=== PATIENT | female | born 1985 | race Caucasian/White ===

== ENCOUNTER 2016-07-23 07:25 | Emergency (ER) | payer OTHER ==
[2016-07-23] MEDS ORDERED: SODIUM CHLORIDE 0.9% 1,000 ML IV STA (07:58)
[2016-07-23] MEDS ORDERED: KETOROLAC 30 MG/ML 1 ML VIAL IVP STA (07:58)
--- NOTE | 2016-07-23 08:07 | ED ---
Abdominal Pain HPI - General Chief Complaint: Abdominal Pain Stated Complaint: lower abdominal pain Time Seen by Provider: 07/23/16 07:40 Source: patient, RN notes reviewed Mode of arrival: ambulatory Limitations: no limitations - History of Present Illness Initial Comments: This is a 31-year-old female who presents with complaints of lower abdominal pain which started about a week ago. She states pain is assessing dull achy- type pain mostly suprapubic but it goes across both sides right and left lower quadrants she states she was seen in outpatient clinic 3 days ago and diagnosed with urinary tract infection. She is placed on Bactrim but states she has no improvement she still has urinary urgency and she had more pain this morning that she has previously. The pain is currently 7-8/10 severity she denies any vaginal discharges she denies any her last muscle. Was June 25. She denies any constipation nausea vomiting diarrhea no fevers chills or sweats. No prior history kidney stones no prior abdominal surgeries. The pain does not get any worse with deep breathing does get worse with movement. MD Complaint: abdominal pain, other - Related Data Home Medications Medication Instructions Recorded Confirmed Sulfamethox-Tmp 800-160Mg [Bactrim 1 tab PO Q12HR 07/23/16 07/23/16 DS 800-160 mg] Previous Rx's Medication Instructions Recorded Ibuprofen [Motrin] 800 mg PO Q6HR PRN #20 tab 07/23/16 Oxybutynin Chloride [Ditropan] 5 mg PO BID #6 tab 07/23/16 Phenazopyridine HCl [Pyridium] 200 mg PO AC-TID #10 tablet 07/23/16 Allergies Allergy/AdvReac Type Severity Reaction Status Date / Time ofloxacin Allergy Rash/Hives Verified 07/23/16 07:30 Review of Systems ROS Statement: Those systems with pertinent positive or pertinent negative responses have been documented in the HPI. ROS Other: All systems not noted in ROS Statement are negative. Past Medical History Past Medical History: No Reported History History of Any Multi-Drug Resistant Organisms: None Reported Past Surgical History: No Surgical Hx Reported Past Psychological History: Depression Smoking Status: Current every day smoker Past Alcohol Use History: Occasional Past Drug Use History: None Reported General Exam - General Exam Comments Initial Comments: This is a well-developed well-nourished awake alert oriented 3 female Limitations: no limitations General appearance: alert, anxious, in distress Head exam: Present: atraumatic, normocephalic, normal inspection Eye exam: Present: normal appearance, PERRL, EOMI. Absent: scleral icterus, conjunctival injection, periorbital swelling ENT exam: Present: normal exam, mucous membranes moist Neck exam: Present: normal inspection. Absent: tenderness, meningismus, lymphadenopathy Respiratory exam: Present: normal lung sounds bilaterally. Absent: respiratory distress, wheezes, rales, rhonchi, stridor Cardiovascular Exam: Present: regular rate, normal rhythm, normal heart sounds. Absent: systolic murmur, diastolic murmur, rubs, gallop, clicks GI/Abdominal exam: Present: soft, tenderness (Tenderness palpation of the lower abdomen mostly over the suprapubic region some tenderness palpation over the left and right lower quadrants no guarding or rebound at this time.), normal bowel sounds. Absent: distended, guarding, rebound, rigid, bruit, pulsatile mass, hernia Extremities exam: Present: normal inspection, full ROM, normal capillary refill. Absent: tenderness, pedal edema, joint swelling, calf tenderness Back exam: Present: normal inspection Neurological exam: Present: alert, oriented X3, CN II-XII intact Psychiatric exam: Present: normal affect, normal mood Skin exam: Present: warm, dry, intact, normal color. Absent: rash Course Vital Signs 07/23/16 07/23/16 07/23/16 07:27 07:39 09:22 Temperature 97.0 F L 97.4 F L 98.1 F Pulse Rate 75 63 70 Respiratory 16 18 16 Rate Blood Pressure 146/82 121/73 95/56 O2 Sat by Pulse 97 100 99 Oximetry Medical Decision Making - Medical Decision Making I did discuss the findings with the patient and her mother who is present. The urine appears be clear the patient was having urinary frequency and some spasm is still may be consistent with a cystitis and some bladder spasms. Also the patient did have sharp left-sided pain which did relieve which would coincide with a ruptured ovarian cyst. Patient be discharged she is to not continue with her current medications we did discuss the elevated lipase level she does occasionally drink but hasn't drank recently. This may be secondary to a viral infection. Patient will follow up with Dr. Henson and return if needed. - Lab Data Result diagrams: 07/23/16 08:10 07/23/16 08:10 Lab Results 07/23/16 07/23/16 07/23/16 Range/Units 08:10 08:10 08:10 WBC 8.6 (3.8-10.6) k/uL RBC 4.46 (3.80-5.40) m/uL Hgb 13.0 (11.4-16.0) gm/dL Hct 39.3 (34.0-46.0) % MCV 88.2 (80.0-100.0) fL MCH 29.1 (25.0-35.0) pg MCHC 33.0 (31.0-37.0) g/dL RDW 13.2 (11.5-15.5) % Plt Count 218 (150-450) k/uL Neutrophils % 58 % Lymphocytes % 36 % Monocytes % 4 % Eosinophils % 1 % Basophils % 0 % Neutrophils # 4.9 (1.3-7.7) k/uL Lymphocytes # 3.1 (1.0-4.8) k/uL Monocytes # 0.3 (0-1.0) k/uL Eosinophils # 0.1 (0-0.7) k/uL Basophils # 0.0 (0-0.2) k/uL Sodium 141 (137-145) mmol/L Potassium 4.4 (3.5-5.1) mmol/L Chloride 110 H (98-107) mmol/L Carbon Dioxide 21 L (22-30) mmol/L Anion Gap 10 mmol/L BUN 13 (7-17) mg/dL Creatinine 0.87 (0.52-1.04) mg/dL Est GFR (MDRD) Af Amer >60 (>60 ml/min/1.73 sqM) Est GFR (MDRD) Non-Af >60 (>60 ml/min/1.73 sqM) Glucose 92 (74-99) mg/dL Calcium 9.2 (8.4-10.2) mg/dL Total Bilirubin 0.4 (0.2-1.3) mg/dL AST 25 (14-36) U/L ALT 35 (9-52) U/L Alkaline Phosphatase 53 (38-126) U/L Total Protein 6.7 (6.3-8.2) g/dL Albumin 3.9 (3.5-5.0) g/dL Amylase 99 (30-110) U/L Lipase 583 H (23-300) U/L Urine Color Yellow Urine Appearance Cloudy H (Clear) Urine pH 5.5 (5.0-8.0) Ur Specific [place] 1.023 (1.001-1.035) Urine Protein 1+ H (Negative) Urine Glucose (UA) Negative (Negative) Urine Ketones Negative (Negative) Urine Blood Negative (Negative) Urine Nitrite Negative (Negative) Urine Bilirubin Negative (Negative) Urine Urobilinogen <2.0 (<2.0) mg/dL Ur Leukocyte Esterase Negative (Negative) Urine RBC 1 (0-5) /hpf Urine WBC 3 (0-5) /hpf Ur Squamous Epith Cells 5 H (0-4) /hpf Urine Bacteria Moderate H (None) /hpf Hyaline Casts 28 H (0-2) /lpf Urine Mucus Few H (None) /hpf Urine HCG, Qual (Not Detectd) 07/23/16 Range/Units 08:10 WBC (3.8-10.6) k/uL RBC (3.80-5.40) m/uL Hgb (11.4-16.0) gm/dL Hct (34.0-46.0) % MCV (80.0-100.0) fL MCH (25.0-35.0) pg MCHC (31.0-37.0) g/dL RDW (11.5-15.5) % Plt Count (150-450) k/uL Neutrophils % % Lymphocytes % % Monocytes % % Eosinophils % % Basophils % % Neutrophils # (1.3-7.7) k/uL Lymphocytes # (1.0-4.8) k/uL Monocytes # (0-1.0) k/uL Eosinophils # (0-0.7) k/uL Basophils # (0-0.2) k/uL Sodium (137-145) mmol/L Potassium (3.5-5.1) mmol/L Chloride (98-107) mmol/L Carbon Dioxide (22-30) mmol/L Anion Gap mmol/L BUN (7-17) mg/dL Creatinine (0.52-1.04) mg/dL Est GFR (MDRD) Af Amer (>60 ml/min/1.73 sqM) Est GFR (MDRD) Non-Af (>60 ml/min/1.73 sqM) Glucose (74-99) mg/dL Calcium (8.4-10.2) mg/dL Total Bilirubin (0.2-1.3) mg/dL AST (14-36) U/L ALT (9-52) U/L Alkaline Phosphatase (38-126) U/L Total Protein (6.3-8.2) g/dL Albumin (3.5-5.0) g/dL Amylase (30-110) U/L Lipase (23-300) U/L Urine Color Urine Appearance (Clear) Urine pH (5.0-8.0) Ur Specific [place] (1.001-1.035) Urine Protein (Negative) Urine Glucose (UA) (Negative) Urine Ketones (Negative) Urine Blood (Negative) Urine Nitrite (Negative) Urine Bilirubin (Negative) Urine Urobilinogen (<2.0) mg/dL Ur Leukocyte Esterase (Negative) Urine RBC (0-5) /hpf Urine WBC (0-5) /hpf Ur Squamous Epith Cells (0-4) /hpf Urine Bacteria (None) /hpf Hyaline Casts (0-2) /lpf Urine Mucus (None) /hpf Urine HCG, Qual Not Detected (Not Detectd) - Radiology Data Radiology results: report reviewed (I did review the imaging and the ultrasound shows evidence of free fluid which is consistent with a ruptured cyst. No other significant findings), image reviewed Disposition Clinical Impression: Abdominal pain, Pancreatitis, Ruptured ovarian cyst, Bladder spasm Disposition: HOME SELF-CARE Condition: Good Instructions: Abdominal Pain (ED), Pancreatitis (ED), Ovarian Cyst (ED) Prescriptions: Ibuprofen [Motrin] 800 mg PO Q6HR PRN #20 tab PRN Reason: Pain Oxybutynin Chloride [Ditropan] 5 mg PO BID #6 tab Phenazopyridine HCl [Pyridium] 200 mg PO AC-TID #10 tablet
[2016-07-23] MEDS ORDERED: IBUPROFEN ORAL SUSP 100 MG/5 ML CUP PO ONE (08:13)
[2016-07-23 08:27] LABS: Basophils % (A) 0 %; CH 28.7; CHCM 32.7; Eosinophils # (A) 0.1 k/uL (0-0.7); Eosinophils % (A) 1 %; HCT 39.3 % (34.0-46.0); HDW 2.26; Luc # (Auto) 0.13; Luc % (Auto) 2; Lymphocytes # (A) 3.1 k/uL (1.0-4.8); Lymphocytes % (A) 36 %; MCH 29.1 pg (25.0-35.0); MCV 88.2 fL (80.0-100.0); Mean Platelet Volume 6.6; Monocytes # (A) 0.3 k/uL (0-1.0); Monocytes % (A) 4 %; Neutrophils # (A) 4.9 k/uL (1.3-7.7); Neutrophils % (A) 58 %; RBC 4.46 m/uL (3.80-5.40); RDW 13.2 % (11.5-15.5); WBC 8.6 k/uL (3.8-10.6); WBC (Perox) 8.73
[2016-07-23 08:31] LABS: Appearance,Urine Cloudy (Clear); Bacteria,Urine Moderate /hpf; Bilirubin,Urine Negative (Negative); Glucose,Urine (UA) Negative (Negative); Ketones,Urine Negative (Negative); Leukocyte Esterase,Urine Negative (Negative); Mucus,Urine Few /hpf; Nitrite,Urine Negative (Negative); PH, Urine 5.5 (5.0-8.0); Particle Count 12665; Protein,Urine 1+ (Negative); RBC,Urine 1 /hpf (0-5); Specific Gravity,Urine 1.023 (1.001-1.035); Squamous Epithelial Cell,Urine 5 /hpf (0-4); UA Billing (MACRO vs. MICRO) MICRO; Urobilinogen,Urine <2.0 mg/dL (<2.0); WBC,Urine 3 /hpf (0-5)
[2016-07-23 08:39] LABS: ALT 35 U/L (9-52); AST 25 U/L (14-36); Alkaline Phosphatase 53 U/L (38-126); Amylase 99 U/L (30-110); Anion Gap 10 mmol/L; Blood Urea Nitrogen 13 mg/dL (7-17); Calcium 9.2 mg/dL (8.4-10.2); Carbon Dioxide 21 mmol/L (22-30); Chloride 110 mmol/L (98-107); Glucose 92 mg/dL (74-99); Non-African American GFR(MDRD) >60 (>60 ml/min/1.73 sqM); Potassium 4.4 mmol/L (3.5-5.1); Sodium 141 mmol/L (137-145); Total Bilirubin 0.4 mg/dL (0.2-1.3); Total Protein 6.7 g/dL (6.3-8.2)
[2016-07-23 09:23] VITALS: RESP 16
--- NOTE | 2016-07-23 09:43 | CT ---
EXAMINATION TYPE: CT abdomen pelvis wo con DATE OF EXAM: 07/23/2016 9:36 AM COMPARISON: NONE HISTORY: Abdominal pain, left side CT DLP: 438 mGycm FINDINGS: LUNG BASES: No evidence for nodule. No evidence for infiltrate. LIVER/GB: The gallbladder is unremarkable. No space-occupying hepatic lesion. PANCREAS: No pancreatic mass identified. No inflammatory process seen. SPLEEN: No evidence for splenomegaly. No intrasplenic lesions seen. ADRENALS: No adrenal nodules identified. No evidence for thickening. KIDNEYS: No evidence for renal mass. No nephrolithiasis. No hydronephrosis. BOWEL: Appendix has a normal appearance. No evidence of bowel obstruction. No inflammatory process. Lymph nodes: No evidence for adenopathy greater than 1 cm. Abdominal aorta: Atheromatous changes seen. No evidence for aneurysm. Genital organs: Moderate pelvic free fluid may be related to recently ruptured cyst. Uterus is grossl y unremarkable. No definite adnexal mass identified at this time. Other: No significant abnormality. IMPRESSION: Moderate pelvic free fluid may be related to recently ruptured cyst.
[2016-07-23 10:52] VITALS: BP 111/56; PULSE 66; TEMP 97.7
== END 2016-07-23 10:49 | disposition home or self-care (01) ==
LOC: EC 07:25
DX: K85.90 Acute pancreatitis without necrosis or infection, unspecified (principal); N83.202 Unspecified ovarian cyst, left side; N32.89 Other specified disorders of bladder; Z88.1 Allergy status to other antibiotic agents
CPT/HCPCS: 96361 ×2; 96374 ×2; 99284 ×2; 36415; 80053; 82150; 83690; 85025; 81001; 81025; 87086; 74176; J1885

== ENCOUNTER → 2017-12-15 | Outpatient (CLI) | payer BC ==
[2017-12-15 10:44] LABS: ALT 34 U/L (9-52); AST 21 U/L (14-36); Albumin 4.5 g/dL (3.5-5.0); Alkaline Phosphatase 54 U/L (38-126); Anion Gap 10 mmol/L; Blood Urea Nitrogen 15 mg/dL (7-17); Calcium 9.5 mg/dL (8.4-10.2); Carbon Dioxide 26 mmol/L (22-30); Chloride 104 mmol/L (98-107); Cholesterol 183 mg/dL (<200); Glucose 90 mg/dL (74-99); HDL Cholesterol 67 mg/dL (40-60); LDL Cholesterol,Calculated 92 mg/dL (0-99); Potassium 4.5 mmol/L (3.5-5.1); Sodium 140 mmol/L (137-145); Total Bilirubin 0.4 mg/dL (0.2-1.3); Total Protein 7.4 g/dL (6.3-8.2); Triglycerides 118 mg/dL (<150)
[2017-12-15 10:51] LABS: Basophils % (A) 0 %; Eosinophils # (A) 0.1 k/uL (0-0.7); Eosinophils % (A) 1 %; HCT 43.3 % (34.0-46.0); HGB 13.8 gm/dL (11.4-16.0); Lymphocytes # (A) 2.2 k/uL (1.0-4.8); Lymphocytes % (A) 23 %; MCH 28.6 pg (25.0-35.0); MCHC 31.8 g/dL (31.0-37.0); MCV 89.9 fL (80.0-100.0); Mean Platelet Volume 6.5; Monocytes # (A) 0.3 k/uL (0-1.0); Monocytes % (A) 3 %; Neutrophils # (A) 6.9 k/uL (1.3-7.7); Neutrophils % (A) 72 %; Platelet Count 250 k/uL (150-450); RBC 4.82 m/uL (3.80-5.40); RDW 13.1 % (11.5-15.5); WBC 9.6 k/uL (3.8-10.6)
[2017-12-15 10:58] LABS: T4, Free (Free Thyroxine) 0.79 ng/dL (0.78-2.19)
== END | disposition home or self-care (01) ==
LOC: LABWHC1 08:57
PROVIDERS: ATTEND Family Medicine
DX: Z00.00 Encounter for general adult medical examination without abnormal findings (principal)
CPT/HCPCS: 36415; 80053; 80061; 84439; 84443; 85025

== ENCOUNTER 2018-03-21 14:05 | Emergency (ER) | payer BC ==
[2018-03-21 14:49] VITALS: BP 120/73; PULSE 77; RESP 18; TEMP 98.1
--- NOTE | 2018-03-21 17:05 | ED ---
General Adult HPI - General Chief complaint: Abdominal Pain Stated complaint: lower abd pain, pelvis pain, chills Source: patient Mode of arrival: ambulatory Limitations: no limitations - Related Data Home Medications Medication Instructions Recorded Confirmed Ascorbic Acid [Vitamin C] 1,000 mg PO DAILY 03/21/18 03/21/18 Cholecalciferol (Vitamin D3) 10,000 unit PO DAILY 03/21/18 03/21/18 [Vitamin D3] Cyanocobalamin (Vitamin B-12) 1,000 mcg PO DAILY 03/21/18 03/21/18 [Vitamin B-12] L.acidoph,Paracasei, B.lactis 2 cap PO DAILY 03/21/18 03/21/18 [Probiotic] Allergies Allergy/AdvReac Type Severity Reaction Status Date / Time ofloxacin Allergy Rash/Hives Verified 03/21/18 16:43 Review of Systems ROS Statement: Those systems with pertinent positive or pertinent negative responses have been documented in the HPI. ROS Other: All systems not noted in ROS Statement are negative. Past Medical History Past Medical History: No Reported History History of Any Multi-Drug Resistant Organisms: None Reported Past Surgical History: No Surgical Hx Reported Additional Past Surgical History / Comment(s): HPV surgery unsure Past Psychological History: Anxiety, Depression Smoking Status: Current every day smoker Past Alcohol Use History: Occasional Past Drug Use History: None Reported General Exam Limitations: no limitations Course Vital Signs 03/21/18 14:45 Temperature 98.1 F Pulse Rate 77 Respiratory 18 Rate Blood Pressure 120/73 O2 Sat by Pulse 98 Oximetry Medical Decision Making - Medical Decision Making Dictation was produced using [employer] dictation software. please excuse any grammatical, word or spelling errors. Chief Complaint: 33-year-old female presents with bilateral lower quadrant abdominal pain. History of Present Illness: Patient states that her symptoms have been ongoing for the last 2-3 days. Patient states the pain is located to the bilateral lower quadrant or she has history of urinary tract infection in the past per she states that pain is a nagging pain over the suprapubic area. Patient has any constitutional symptoms. Patient has any nausea, vomiting. Denies any history of abdominal surgery. Denies any changes in her bowel habits. Patient denies any vaginal discharge per she is concerned about STD. Patient is sexually active. She is unsure if she is . The ROS documented in this emergency department record has been reviewed and confirmed by me. Those systems with pertinent positive or negative responses have been documented in the HPI. All other systems are other negative and/or noncontributory. PHYSICAL EXAM: General Impression: Alert and oriented x3, not in acute distress HEENT: Normocephalic atraumatic, extra-ocular movements intact, pupils equal and reactive to light bilaterally, mucous membranes moist. Cardiovascular: Heart regular rate and rhythm, S1&S2 audible, no murmurs, rubs or gallops Chest: Lungs clear to auscultation bilaterally, no rhonchi, no wheeze, no rales Abdomen: Bowel sounds present, abdomen soft, non-tender, non-distended, no organomegaly, tenderness to palpation of the right lower quadrant, negative rebound tenderness, negative referred pain with palpation to the left Musculoskeletal: Pulses present and equal in all extremities, no peripheral edema Motor: Power 5/5 bilaterally, no focal deficits noted Neurological: CN II-XII grossly intact, no focal motor or sensory deficits noted Skin: Intact with no visualized rashes Psych: Normal affect and mood ED course: 30-year-old female presents chief complaint suprapubic pain. Vital signs upon arrival are within acceptable limits. Pelvic exam was performed. There is no findings to suggest cervicitis. No cervical motion or adnexal tenderness. Laboratory evaluation obtained. CBC, metabolic panel, urinalysis were obtained. Patient has 7 white blood cells. Urine is negative. Rapid trichomoniasis is negative. At this point patient's symptoms are not severe to indicate obtaining transvaginal ultrasound. Pelvic exam was unremarkable. No signs of vaginitis. There is concerned that patient has findings associated with sexual transmitted disease. Otherwise, ovulation pain is suspected given that patient is midcycle. Patient treated with STD medications. Still to follow-up in 2 days to follow- up with STD results and urine culture results. Patient told to follow-up with primary care physician upon discharge. - Lab Data Result diagrams: 03/21/18 17:28 03/21/18 17:28 Lab Results 03/21/18 03/21/18 03/21/18 Range/Units 17:28 17:28 17:28 WBC (3.8-10.6) k/uL RBC (3.80-5.40) m/uL Hgb (11.4-16.0) gm/dL Hct (34.0-46.0) % MCV (80.0-100.0) fL MCH (25.0-35.0) pg MCHC (31.0-37.0) g/dL RDW (11.5-15.5) % Plt Count (150-450) k/uL Neutrophils % % Lymphocytes % % Monocytes % % Eosinophils % % Basophils % % Neutrophils # (1.3-7.7) k/uL Lymphocytes # (1.0-4.8) k/uL Monocytes # (0-1.0) k/uL Eosinophils # (0-0.7) k/uL Basophils # (0-0.2) k/uL Sodium 139 (137-145) mmol/L Potassium 4.6 (3.5-5.1) mmol/L Chloride 106 (98-107) mmol/L Carbon Dioxide 25 (22-30) mmol/L Anion Gap 8 mmol/L BUN 14 (7-17) mg/dL Creatinine 0.75 (0.52-1.04) mg/dL Est GFR (CKD-EPI)AfAm >90 (>60 ml/min/1.73 sqM) Est GFR (CKD-EPI)NonAf >90 (>60 ml/min/1.73 sqM) Glucose 92 (74-99) mg/dL Calcium 9.5 (8.4-10.2) mg/dL Urine Color Light Yellow Urine Appearance Cloudy H (Clear) Urine pH 5.5 (5.0-8.0) Ur Specific [place] 1.013 (1.001-1.035) Urine Protein Negative (Negative) Urine Glucose (UA) Negative (Negative) Urine Ketones Negative (Negative) Urine Blood Negative (Negative) Urine Nitrite Negative (Negative) Urine Bilirubin Negative (Negative) Urine Urobilinogen <2.0 (<2.0) mg/dL Ur Leukocyte Esterase Negative (Negative) Urine RBC 4 (0-5) /hpf Urine WBC 7 H (0-5) /hpf Ur Squamous Epith Cells 3 (0-4) /hpf Urine Bacteria Many H (None) /hpf Urine Mucus Rare H (None) /hpf Urine HCG, Qual Not Detected (Not Detectd) Trichomonas Ag (Rapid) (Negative) 03/21/18 03/21/18 Range/Units 17:28 17:45 WBC 7.9 (3.8-10.6) k/uL RBC 4.56 (3.80-5.40) m/uL Hgb 13.0 (11.4-16.0) gm/dL Hct 41.2 (34.0-46.0) % MCV 90.3 (80.0-100.0) fL MCH 28.6 (25.0-35.0) pg MCHC 31.6 (31.0-37.0) g/dL RDW 13.5 (11.5-15.5) % Plt Count 262 (150-450) k/uL Neutrophils % 56 % Lymphocytes % 36 % Monocytes % 3 % Eosinophils % 3 % Basophils % 1 % Neutrophils # 4.4 (1.3-7.7) k/uL Lymphocytes # 2.9 (1.0-4.8) k/uL Monocytes # 0.3 (0-1.0) k/uL Eosinophils # 0.2 (0-0.7) k/uL Basophils # 0.0 (0-0.2) k/uL Sodium (137-145) mmol/L Potassium (3.5-5.1) mmol/L Chloride (98-107) mmol/L Carbon Dioxide (22-30) mmol/L Anion Gap mmol/L BUN (7-17) mg/dL Creatinine (0.52-1.04) mg/dL Est GFR (CKD-EPI)AfAm (>60 ml/min/1.73 sqM) Est GFR (CKD-EPI)NonAf (>60 ml/min/1.73 sqM) Glucose (74-99) mg/dL Calcium (8.4-10.2) mg/dL Urine Color Urine Appearance (Clear) Urine pH (5.0-8.0) Ur Specific [place] (1.001-1.035) Urine Protein (Negative) Urine Glucose (UA) (Negative) Urine Ketones (Negative) Urine Blood (Negative) Urine Nitrite (Negative) Urine Bilirubin (Negative) Urine Urobilinogen (<2.0) mg/dL Ur Leukocyte Esterase (Negative) Urine RBC (0-5) /hpf Urine WBC (0-5) /hpf Ur Squamous Epith Cells (0-4) /hpf Urine Bacteria (None) /hpf Urine Mucus (None) /hpf Urine HCG, Qual (Not Detectd) Trichomonas Ag (Rapid) Negative (Negative) Disposition Clinical Impression: Suprapubic pain Disposition: HOME SELF-CARE Instructions: Abdominal Pain (ED) Is patient prescribed a controlled substance at d/c from ED?: No Time of Disposition: 19:22
[2018-03-21 17:46] LABS: Basophils % (A) 1 %; Eosinophils # (A) 0.2 k/uL (0-0.7); Eosinophils % (A) 3 %; HCT 41.2 % (34.0-46.0); Lymphocytes # (A) 2.9 k/uL (1.0-4.8); Lymphocytes % (A) 36 %; MCH 28.6 pg (25.0-35.0); MCHC 31.6 g/dL (31.0-37.0); MCV 90.3 fL (80.0-100.0); Mean Platelet Volume 5.9; Monocytes # (A) 0.3 k/uL (0-1.0); Monocytes % (A) 3 %; Neutrophils # (A) 4.4 k/uL (1.3-7.7); Neutrophils % (A) 56 %; Platelet Count 262 k/uL (150-450); RBC 4.56 m/uL (3.80-5.40); RDW 13.5 % (11.5-15.5); WBC 7.9 k/uL (3.8-10.6)
[2018-03-21 17:53] LABS: Appearance,Urine Cloudy (Clear); Bacteria,Urine Many /hpf; Bilirubin,Urine Negative (Negative); Blood,Urine Negative (Negative); Color,Urine Light Yellow; Glucose,Urine (UA) Negative (Negative); Ketones,Urine Negative (Negative); Leukocyte Esterase,Urine Negative (Negative); Mucus,Urine Rare /hpf; Nitrite,Urine Negative (Negative); PH, Urine 5.5 (5.0-8.0); Protein,Urine Negative (Negative); RBC,Urine 4 /hpf (0-5); Specific Gravity,Urine 1.013 (1.001-1.035); Squamous Epithelial Cell,Urine 3 /hpf (0-4); Urobilinogen,Urine <2.0 mg/dL (<2.0)
[2018-03-21 17:59] LABS: Anion Gap 8 mmol/L; Blood Urea Nitrogen 14 mg/dL (7-17); Calcium 9.5 mg/dL (8.4-10.2); Carbon Dioxide 25 mmol/L (22-30); Chloride 106 mmol/L (98-107); Glucose 92 mg/dL (74-99); Potassium 4.6 mmol/L (3.5-5.1); Sodium 139 mmol/L (137-145)
[2018-03-21] MEDS ORDERED: AZITHROMYCIN 500 MG TAB PO STA (19:03)
[2018-03-21] MEDS: cefTRIAXone 250 MG VIAL IM STA ×2 (19:20→19:21)
[2018-03-23 15:06] LABS: C. trachomatis,PCR Negative (Neg,Equiv); Chlamydia trachomatis Source Cervix; N. gonorrhoeae,PCR Negative (Neg,Equiv); Neisseria Source Cervix
== END 2018-03-21 19:28 | disposition home or self-care (01) ==
LOC: EC 14:05
DX: R10.31 Right lower quadrant pain (principal); R10.32 Left lower quadrant pain; R82.998 Other abnormal findings in urine; F17.200 Nicotine dependence, unspecified, uncomplicated; Z88.1 Allergy status to other antibiotic agents; Z53.20 Procedure and treatment not carried out because of patient's decision for unspecified reasons
CPT/HCPCS: 36415; 80048; 81001; 81025; 85025; 87086; 87491; 87591; 87808; 99284